=== PATIENT | female | born 1985 | race Caucasian/White ===

== ENCOUNTER → 2020-06-22 12:30 | Outpatient (CLI) | payer OTHER, SELFPAY ==
--- NOTE | 2020-06-22 | DI.US.S_ITS ---
PROCEDURE: US THYROID INDICATIONS: THROAT FULLNESS TECHNIQUE: Real-time scanning was performed of the thyroid gland, with image documentation. COMPARISON: None. FINDINGS: Right: Thyroid lobe measures 4.8 x 2 x 1.8 cm, and is homogeneous in echotexture. Left: Thyroid lobe measures 5.4 x 1.8 x 1.8 cm, and is homogenous in echotexture. Isthmus: 4 mm thick. Nodule number: 1 Location: Left inferior Size: 1.7 x 1.3 x 1.1 cm. Composition: Predominantly cystic Echogenicity: Hypoechoic Shape: wider than tall. Margins: Ill-defined Echogenic foci: None Total points: 2 ACR TI-RADS category: TR 2. Not suspicious Nodule number: 2 Location: Left mid Size: 1.3 x 1 x 1 cm. Composition: Predominantly solid Echogenicity: Hypoechoic Shape: wider than tall. Margins: Smooth Echogenic foci: None Total points: 3 ACR TI-RADS category: TR 3. Mildly suspicious. Nodule number: 3 Location: Right inferior Size: 1.5 x 0.8 x 0.7 cm. Composition: Predominantly cystic Echogenicity: Hypoechoic Shape: wider than tall. Margins: Smooth Echogenic foci: Punctate Total points: 5 ACR TI-RADS category: TR 4. Moderately suspicious. Nodule number: 4 Location: Right mid Size: 0.8 x 0.7 x 0.6 cm. Composition: Predominantly cystic Echogenicity: Anechoic Shape: wider than tall. Margins: Smooth Echogenic foci: Macrocalcification Total points: 1 ACR TI-RADS category: TR 1. Not suspicious. IMPRESSION: Right inferior nodule (#3) measuring 1.5 cm, TR 4, moderately suspicious. -FNA is recommended. ACR TI-RADS definitions and recommendations: TI-RADS 1 (benign): 0 points. FNA not needed. TI-RADS 2 (not suspicious): 2 points. FNA not needed. TI-RADS 3 (mildly suspicious): 3 points. * FNA if 2.5 cm or larger, follow up if 1.5 cm or larger (at 1, 3, and 5 years). TI-RADS 4 (moderately suspicious): 4-6 points. * FNA if 1.5 cm or larger, follow up if 1 cm or larger (at 1, 2, 3, and 5 years). TI-RADS 5 (highly suspicious): 7 points or more. * FNA if 1 cm or larger, follow up if 0.5 cm or larger (every year for 5 years). Dictated by: Brett Dubois M.D. on 06/22/2020 at 15:50 Approved by: Brett Dubois M.D. on 06/22/2020 at 15:56
== END ==
PROVIDERS: Referring Provider Physician Assistant Medical; Visit Provider Physician Assistant Medical
DX: E04.2 Nontoxic multinodular goiter (principal); J39.2 Other diseases of pharynx
CPT/HCPCS: 76536

== ENCOUNTER → 2020-07-18 09:54 | Outpatient (CLI) | payer OTHER, SELFPAY ==
--- NOTE | 2020-07-18 | DI.US.S_ITS ---
PROCEDURE: US FINE NEEDLE ASPIRATION INDICATIONS: Nontoxic multinodular goiter TECHNIQUE: The indications, alternatives, benefits, risks, and complications of the procedure were explained to the patient. Written informed consent was obtained and placed in the chart. The thyroid region was examined sonographically and a site was chosen for ultrasound guided percutaneous sampling. The skin was prepared and draped in the usual fashion, and anesthetized with 1% lidocaine infiltrated from the skin down to the thyroid gland. Multiple passes were then performed, with contents emptied into an appropriate pathology specimen container. A bandage was applied to the area of access at completion of the study. COMPARISON: [facility], US, US THYROID, 06/22/2020, 13:04. FINDINGS: Location(s) of lesion(s) sampled: right inferior thyroid nodule [place]: 25 gauge hypodermic needles. Number of passes: 8 Medications: 1% lidocaine for local anaesthesia. Complications: None. IMPRESSION: Successful ultrasound-guided thyroid nodule fine needle aspiration, with cytology results pending. Please see chart below for management recommendations based on cytology results. [facility] ReportingRecommendationsNon-diagnostic* Repeat US-guided FNA, with on-site cytology evaluation if possible. * Repeated non-diagnostic nodules without high suspicion US features: close observation vs surgical consult. * Consider surgery if nodule has high suspicion US features, grows >20% in 2 dimensions on followup, or patient has clinical risk factors for malignancy. Benign* If nodule has high suspicion US features: repeat US and FNA within 12 months. * If nodule has low to intermediate suspicion US features: repeat US at 12-24 months. If nodule grows (20% increase in at least 2 dimensions, with minimal increase of 2 mm or >50% change in volume), or development of new suspicious US features, then repeat FNA or continue followup. * If nodule has very low suspicion US features: followup US at >24 months. Atypia of undetermined significance, follicular lesion of undetermined significanceRepeat FNA, molecular testing, followup US, or surgical consult.Follicular neoplasm, suspicious for follicular neoplasmSurgical consult; also consider molecular testing. Suspicious for malignancySurgical consult.MalignantSurgical consult. Dictated by: Rachna Lopez M.D. on 07/18/2020 at 12:56 Approved by: Rachna Lopez M.D. on 07/18/2020 at 13:00
--- NOTE | 2020-07-18 | PATH_ITS ---
Note [facility] Accession Number: [id number] TESTS RESULT FLAG UNITS REF RANGE LAB Clinician Provided Cytology Information No. of containers..01 Other (Miscellaneous) No. of containers..06 Previously Prepared Cytology Slide 01 RIGHT THYROID NODULE Clinician ICD10: E04.2 DIAGNOSIS: 01 RIGHT THYROID NODULE NEGATIVE FOR MALIGNANT CELLS. [place] CATEGORY II. SPECIMEN CONSISTS OF BENIGN FOLLICULAR CELLS AND ABUNDANT COLLOID, CONSISTENT WITH A COLLOID NODULE. Pathologist ICD10: E04.2 01 Throat- Describes a sensation of fullness in her that has developed slowly over the last couple of months. States the sensation is constant but more noticeable with certain movements of the head or with swallowing. Denies dysphagia. Reports a remote hx of goiter for which she was prescribed a short course of a medication she does not recall the name of. Recent TSH and T4 were in normal range. Family hx slgnlfiant for thyroid nodules. Has had Imaging completed approx 8 years ago, states a small nodule was identfied but was too small for concern or bx, Denies pain with swallowing, Has not seen enlargement of tonsils. Throat Fullness - Thyroid enlargement is top differential at this time. No indication of viral infection, abscess, or other more acute concerns, Hx significant for thyroid dysfunction and thyroid nodule with no recent evaluation. Advise imaging for further assessment. Thyroid US to Ebonie Albarran MD, Pathologist NPI- [id number] [place], Integrity Assessor ([facility]) 01 30 CC, PINK, CLEAR RECIEVED: IN CYTOLYT WITH 8 ALCOHOL FIXED AND 8 QUICK STAINED SLIDES ALSO 1 RNA VIAL WAS RECEIVED FOR FURTHER TESTING. /[facility] 07/19/2020 0932 [facility] FLAG LEGEND: L-Low Normal,H-High Normal,LL-Alert Low,HH-Alert High <-Panic Low,>-Panic High,A-Abnormal,AA-Critical Abnormal Performed at: 01 =Z [facility] [address] [place] [address] [address], [place] [address] Jag Rice MD, Specimen Comment: A courtesy copy of this report has been sent to [phone] Performed at: 01 [facility] [address] [place] [address] [address], [place], [place] [id number] MD Jag Rice MD Phone: [phone]
== END ==
PROVIDERS: PCP Physician Assistant Medical; Referring Provider Physician Assistant Medical; Visit Provider Physician Assistant Medical
DX: E04.2 Nontoxic multinodular goiter (principal)
CPT/HCPCS: 10005

== ENCOUNTER → 2021-01-03 13:25 | Outpatient (CLI) | payer OTHER, SELFPAY ==
--- NOTE | 2021-01-03 13:26 | DI.US.S_ITS ---
PROCEDURE: US PELVIC COMPLETE INDICATIONS: RIGHT LOWER QUADRANT PAIN/PELVIC PAIN AND VAGINAL BLEEDING. TECHNIQUE: Real-time scanning was performed of the pelvic organs, with image documentation. Additional endovaginal scanning was necessary due to incomplete visualization of the adnexal and endometrial structures by transabdominal scanning. COMPARISON: None. FINDINGS: Uterus: Status post hysterectomy. Ovaries: The right ovary measures 3.7 x 2.6 x 2.2 centimeters. The right ovary is multiple normal appearing follicles. A cyst with a hyperechoic and hypervascular rim measuring 2.1 x 1.7 x 1.5 centimeters is seen in the right ovary. The right ovary has normal arterial and venous flow. The left ovary is not seen.. Other: No pathologic free abdominal or pelvic fluid. IMPRESSION: 1. Complex thick-walled cyst in the right ovary with peripheral flow measuring 2.1 x 1.7 x 1.5 centimeters. Recommend ultrasound in 6 weeks to ensure resolution. 2. Normal for vascular flow to the right ovary. No evidence of torsion. Dictated by: Segun Delarosa M.D. on 01/03/2021 at 16:01 Approved by: Segun Delarosa M.D. on 01/03/2021 at 16:22
== END ==
PROVIDERS: PCP Registered Nurse Diabetes Educator; Referring Provider Registered Nurse Diabetes Educator; Visit Provider Registered Nurse Diabetes Educator
DX: N83.201 Unspecified ovarian cyst, right side (principal); R10.2 Pelvic and perineal pain; R10.31 Right lower quadrant pain
CPT/HCPCS: 76830; 76856

== ENCOUNTER → 2021-02-15 10:54 | Outpatient (CLI) | payer OTHER, SELFPAY ==
--- NOTE | 2021-02-15 10:56 | DI.US.S_ITS ---
PROCEDURE: US PELVIC COMPLETE INDICATIONS: 6 weeks f/u TECHNIQUE: Real-time scanning was performed of the pelvic organs, with image documentation. Additional endovaginal scanning was necessary due to incomplete visualization of the adnexal and endometrial structures by transabdominal scanning. COMPARISON: [facility], , US PELVIC COMPLETE, 01/03/2021, 14:54. FINDINGS: Uterus: Removed. Ovaries: The left ovary is not well seen. The right ovary measures 3.8 x 2.5 x 1.9 cm. The previously seen complex right ovarian cyst has resolved No adnexal masses are seen on either side. Other: No pathologic free abdominal or pelvic fluid. IMPRESSION: Resolution of the previously seen complex right ovarian cyst. Hysterectomy. Left ovary not seen. Dictated by: Ricci Gibson M.D. on 02/15/2021 at 10:33 Approved by: Ricci Gibson M.D. on 02/15/2021 at 10:34
== END ==
PROVIDERS: PCP Registered Nurse Diabetes Educator; Referring Provider Registered Nurse Diabetes Educator; Visit Provider Registered Nurse Diabetes Educator
DX: N83.201 Unspecified ovarian cyst, right side (principal); Z90.710 Acquired absence of both cervix and uterus
CPT/HCPCS: 76830; 76856

== ENCOUNTER → 2021-08-14 12:43 | Outpatient (CLI) | payer OTHER, SELFPAY ==
--- NOTE | 2021-08-14 12:46 | DI.MRI.S_ITS ---
PROCEDURE: MR PELVIS WO CON INDICATIONS: Sacrococcygeal disorders, HLA-b27 positive patient TECHNIQUE: Noncontrast axial and oblique coronal T1 spin echo and STIR through the sacroiliac joints. COMPARISON: None. FINDINGS: Image quality: Excellent. Bones: The sacroiliac joints are preserved. No adjacent bone marrow edema or erosive change is appreciated. Small , left greater than right, inferior posterior SI joint effusions are seen (series 9, image 6). No bony ankylosis. No suspicious marrow space occupying lesions. Soft tissues: No presacral masses. Rectum appears normal in caliber and wall thickness. No pathologic free pelvic fluid. IMPRESSION: Small, left greater than right, inferior posterior sacroiliac joint effusions. Dictated by: Jefe Lopez M.D. on 08/14/2021 at 14:19 Approved by: Jefe Lopez M.D. on 08/14/2021 at 14:41
--- NOTE | 2021-08-14 12:46 | DI.MRI.S_ITS ---
PROCEDURE: MR LUMBAR SPINE WO CON INDICATIONS: Sacrococcygeal disorders, not elsewhere classified TECHNIQUE: Noncontrast sagittal T1 spin echo and T2 fast echo, sagittal STIR, axial T1 and T2 fast spin echo through the lumbar spine. In cases with scoliosis, additional coronal T2 fast spin echo may be performed. COMPARISON: [facility], CR, XR LUMBAR SPINE 2 OR 3 VIEWS, 01/03/2021, 17:05. FINDINGS: Image quality: Excellent. Alignment and Curvature: 5 lumbar type vertebral bodies are present by plain film. Mild grade 1 retrolisthesis of L4 on L5. There is loss of normal lumbar lordosis. Bone Marrow: Marrow is of normal overall signal. No acute vertebral body compression fractures. Spinal Cord: Conus medullaris terminates at the mid L1 level. Visualized cord demonstrates normal signal and size. Paraspinous Soft Tissues: No paravertebral masses. T12-L1: Moderate disc height loss and desiccation. Mild diffuse disc bulge with superimposed broad-based right posterolateral protrusion. Mild canal stenosis. Mild right foraminal stenosis. No left foraminal stenosis. L1-L2: Mild bilateral facet hypertrophy. No significant canal, or foraminal stenosis. L2-L3: Mild bilateral facet hypertrophy. No significant canal, or foraminal stenosis. L3-L4: Normal appearance. L4-L5: Mild disc desiccation and diffuse disc bulge with superimposed small central protrusion. Mild bilateral facet hypertrophy. Mild canal stenosis. No foraminal stenosis. L5-S1: Moderate disc desiccation. Mild diffuse disc bulge. Mild bilateral facet hypertrophy. Mild canal stenosis. Moderate bilateral foraminal stenosis. IMPRESSION: 1. Multilevel degenerative disc and facet disease, as well as ligamentum flavum hypertrophy and epidural lipomatosis. 2. Mild multilevel canal stenoses. 3. Multilevel foraminal stenoses, worst at L5-S1, where there are moderate foraminal stenoses. Dictated by: Kiana Marcelo M.D. on 08/14/2021 at 13:33 Approved by: Kiana Marcelo M.D. on 08/14/2021 at 13:36
== END ==
PROVIDERS: PCP Student in an Organized Health Care Education/Training Program; Referring Provider Student in an Organized Health Care Education/Training Program; Visit Provider Student in an Organized Health Care Education/Training Program
DX: M53.3 Sacrococcygeal disorders, not elsewhere classified (principal); L40.50 Arthropathic psoriasis, unspecified; M51.36 Other intervertebral disc degeneration, lumbar region; M51.37 Other intervertebral disc degeneration, lumbosacral region; M47.816 Spondylosis without myelopathy or radiculopathy, lumbar region; M47.817 Spondylosis without myelopathy or radiculopathy, lumbosacral region; M48.061 Spinal stenosis, lumbar region without neurogenic claudication; M48.07 Spinal stenosis, lumbosacral region; E88.2 Lipomatosis, not elsewhere classified
CPT/HCPCS: 72148; 72195